=== PATIENT | male | born 1955 | race Asian ===

== ENCOUNTER 2018-04-13 04:02 | Emergency (ER) | payer BC, MEDICAID ==
[~2018-04-13] VITALS: Ht 170.2 cm; Wt 68.0 kg
[~2018-04-13 04:02] MED LIST: ACET325T42 PO; AMLO5TAB2 PO; ASPI-495 PO; ATOR40TA PO; DOCU-141 PO; INSU100V7 SQ; METO25TA6 PO
--- NOTE | 2018-04-13 04:40 | NUR ---
PT BIB SELF C/O RUNNING OUT OF ALL MEDS INCLUDING ORAL ANTIDIABETIC AGENTS AND INSULIN X "MONTHS", AND A "WOUND" TO THE R GREAT TOE WHICH APPEARS TO HAVE DARKENED, POSSIBLY NECROTIC, TISSUE. PT REPORTS METH AND CIGARETTE USE. RESP EVEN UNLABORED. SKIN WARM DRY. AMBULATORY STEADY GAIT. IN ER BED 11.
[2018-04-13 04:57] LABS: BASOPHILS % (AUTO) 0.5 % (0.0-2.0); EOSINOPHILS % (AUTO) 5.9 % (0.0-6.0); HEMATOCRIT 39 % (39-51); LYMPHOCYTES # (AUTO) 1.9 /CMM (0.8-4.8); LYMPHOCYTES % (AUTO) 25.1 % (20.0-44.0); MEAN CORPUSCULAR HEMOGLOBIN 31 PG (26.0-33.0); MEAN CORPUSCULAR HGB CONC 34 g/dl (31.0-36.0); MEAN CORPUSCULAR VOLUME 91 fL (80-96); MONOCYTES # (AUTO) 0.8 /CMM (0.1-1.30); MONOCYTES % (AUTO) 10.4 % (2.0-12.0); NEUTROPHILS # (AUTO) 4.4 /CMM (1.8-8.9); NEUTROPHILS % (AUTO) 58.1 % (43.0-81.0); PLATELET COUNT (AUTO) 210 /CMM (150-450); RDW COEFFICIENT OF VARIATION 13.9 (11.5-15.0); RED BLOOD CELL COUNT(AUTO) 4.25 MIL/uL (4.5-6.0); WHITE BLOOD COUNT (AUTO) 7.6 K/uL (4.3-11.0)
[2018-04-13] MEDS ORDERED: INSULIN REGULAR, HUMAN 100 UNIT/ML 10 ML VIAL ONE (04:57)
[2018-04-13] MEDS ORDERED: OLANZAPINE 5 MG TABLET ONE (05:10)
[2018-04-13] MEDS ORDERED: diphenhydrAMINE HCL 50 MG/ML VIAL ONE (05:10)
[2018-04-13] MEDS: diphenhydrAMINE HCL 50 MG/ML VIAL IV ONE (05:20)
[2018-04-13] MEDS: INSULIN REGULAR, HUMAN 100 UNIT/ML 10 ML VIAL IV ONE (05:20)
[2018-04-13] MEDS: IV NS 0.9% 1,000 ML BAG IV ONE (05:20)
[2018-04-13] MEDS: OLANZAPINE 5 MG TABLET PO ONE (05:21)
[2018-04-13 05:27] LABS: ALBUMIN 2.9 g/dL (3.4-5.0); BILIRUBIN,DIRECT 0.1 mg/dL (0.0-0.2); BILIRUBIN,TOTAL 0.2 mg/dL (0.2-1.0); CALCIUM, SERUM 8.6 mg/dL (8.5-10.1); CREATININE 1.1 mg/dL (0.6-1.3); TOTAL PROTEIN, SERUM 6.3 g/dL (6.4-8.2)
--- NOTE | 2018-04-13 05:28 | NUR ---
FEET SOAKING IN WARM SOAPY WATER PER MD ORDER
--- NOTE | 2018-04-13 05:32 | NUR ---
AFTER SOAKING FOR A FEW MINUTES, THE "WOUND" HAS DISAPPEARED AND NO DARK ANKUR REMAINS. MD NOTIFIED.
[2018-04-13] MEDS ORDERED: DEXTROSE 50%-WATER 50 ML DISP.SYRIN ONE (06:31)
--- NOTE | 2018-04-13 06:38 | NUR ---
bgl recheck=40. dr luis notified immediately. iv d50 pulled from [employer] [place] in preparation of administration. repeat accucheck showed 66. md updated, and received order to feed pt instead of iv d50 at this time and continue to monitor. VSS. NAD noted. resp even unlabored. skin warm dry. ambulatory steady gait, ambulated to restroom. give 8oz orange juice, peanut butter sandwich, and pudding. encouraged to eat promptly.
[2018-04-13] MEDS: DEXTROSE 50%-WATER 50 ML DISP.SYRIN IVP ONE (07:06)
[2018-04-13 08:01] VITALS: BP 139/80
--- NOTE | 2018-04-13 08:02 | NUR ---
Patient discharged to home in stable condition. Written and verbal after care instructions given. Patient verbalizes understanding of instruction.IV removed. Catheter intact and site benign. Pressure and 4x4 applied to site. No bleeding noted.
== END 2018-04-13 08:04 | disposition home or self-care (01) ==
LOC: ER 04:09
DX: F15.10 Other stimulant abuse, uncomplicated (principal); F17.200 Nicotine dependence, unspecified, uncomplicated; L29.8 Other pruritus; E10.65 Type 1 diabetes mellitus with hyperglycemia; Z59.0 Homelessness; R20.2 Paresthesia of skin; I10 Essential (primary) hypertension; Z90.89 Acquired absence of other organs; Z95.1 Presence of aortocoronary bypass graft; Z79.4 Long term (current) use of insulin; Z79.82 Long term (current) use of aspirin; Z79.899 Other long term (current) drug therapy
CPT/HCPCS: 36415; 80048-TC; 80076-TC; 82962-TC; 83690-TC; 85025-TC; A4606; J1200; J1815; J7030; Z7610

== ENCOUNTER 2019-10-09 02:25 | Emergency (ER) | payer BC ==
[~2019-10-09] VITALS: Ht 170.2 cm; Wt 65.8 kg
[~2019-10-09 02:25] MED LIST changes: -AMLO5TAB2 PO; +AMLO5TAB9 PO
[2019-10-09 02:53] VITALS: BP 144/86
[2019-10-09] MEDS ORDERED: IBUPROFEN 400 MG TABLET ONE (03:05)
--- NOTE | 2019-10-09 03:11 | NUR ---
PATIENT REFUSED TO SIGN DISCHARGE PAPERS.
[2019-10-09] MEDS ORDERED: IBUPROFEN 400 MG TABLET PO ONE (03:30)
== END 2019-10-09 03:12 | disposition home or self-care (01) ==
LOC: ER 02:26
DX: L84 Corns and callosities (principal); I10 Essential (primary) hypertension; E11.9 Type 2 diabetes mellitus without complications; Z90.89 Acquired absence of other organs; Z98.890 Other specified postprocedural states; Z79.4 Long term (current) use of insulin; Z79.899 Other long term (current) drug therapy; Z79.82 Long term (current) use of aspirin; Z87.891 Personal history of nicotine dependence

== ENCOUNTER 2020-11-12 14:22 | Emergency (ER) | payer MEDICARE, BC ==
[~2020-11-12] VITALS: Ht 167.6 cm; Wt 59.0 kg
[~2020-11-12 14:22] MED LIST changes: +AMLO-212 PO; -AMLO5TAB9 PO
--- NOTE | 2020-11-12 14:36 | NUR ---
[employer] at bedside speaking to patient for investigation.
--- NOTE | 2020-11-12 14:38 | NUR ---
PER [employer] PT REFUSING TO FILE COMPLAINT
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
[2020-11-12] MEDS ORDERED: IV NS 0.9% 1,000 ML IV ONE ×2 (16:00→19:00)
[2020-11-12 16:22] LABS: BASOPHILS % (AUTO) 0.3 % (0.0-2.0); EOSINOPHILS % (AUTO) 0.6 % (0.0-6.0); HEMATOCRIT 50 % (39-51); HEMOGLOBIN 16.7 g/dL (13.5-17.5); LYMPHOCYTES # (AUTO) 0.9 /CMM (0.8-4.8); LYMPHOCYTES % (AUTO) 8.7 % (20.0-44.0); MEAN CORPUSCULAR HGB CONC 33 g/dl (31.0-36.0); MEAN CORPUSCULAR VOLUME 94 fL (80-96); MONOCYTES # (AUTO) 0.6 /CMM (0.1-1.30); MONOCYTES % (AUTO) 5.8 % (2.0-12.0); NEUTROPHILS # (AUTO) 9.2 /CMM (1.8-8.9); NEUTROPHILS % (AUTO) 84.6 % (43.0-81.0); PLATELET COUNT (AUTO) 252 /CMM (150-450); RED BLOOD CELL COUNT(AUTO) 5.37 MIL/uL (4.5-6.0); WHITE BLOOD COUNT (AUTO) 10.9 K/uL (4.3-11.0)
[2020-11-12 16:24] LABS: ABG BASE EXCESS -10.3 mmol/L; ABG OXYGEN SATURATION 65.1 % (92.0-98.5); ABG PCO2 23.3 mmHg (35.0-45.0); ABG PH 7.383 (7.350-7.450); ABG PO2 34.5 mmHg (75.0-100.0); COHb 0.3 % (0.5-1.5); MetHb 1.1 % (0.0-1.5); O2Hb 64.2 % (94.0-97.0); SITE, ABG LEFT ARM; VENT MODE, BG RA
--- NOTE | 2020-11-12 16:59 | NUR ---
CALLED [facility] [place] [place] PER [facility] NO AVAILABLE BEDS AND SATURATED AT THIS TIME.
[2020-11-12 17:01] LABS: MAGNESIUM 2.2 mg/dL (1.8-2.4)
[2020-11-12 17:07] LABS: CALCIUM, SERUM 9.3 mg/dL (8.5-10.1); CREATININE 0.9 mg/dL (0.6-1.3); POTASSIUM 4.7 mmol/L (3.5-5.1)
--- NOTE | 2020-11-12 17:07 | NUR ---
CALLED [facility] [phone] SHAHIDA IN ER HAVING MD ALIDA HERNANDEZ WITH DR. NGUYEN.
[2020-11-12] MEDS ORDERED: INSULIN ASPART/LISPRO 100 UNIT/ML CARTRIDGE SQ STA (17:27)
--- NOTE | 2020-11-12 17:46 | NUR ---
CALLED [facility] [phone] FAXING INFO TO:
--- NOTE | 2020-11-12 18:09 | NUR ---
CALLED [facility] [phone] ER NO ENT SENIOR COPYWRITER.
--- NOTE | 2020-11-12 18:23 | NUR ---
CALLED [facility] [phone] WITH [address]. GREEN
[2020-11-12] MEDS ORDERED: INSULIN REGULAR, HUMAN 100 UNIT/ML 10 ML VIAL ONE (18:36)
--- NOTE | 2020-11-12 18:42 | NUR ---
spoke to Delia Johnson from [facility] transfer center and faxed all clinicals to review. Awaiting for call back.
[2020-11-12] MEDS ORDERED: INSULIN REGULAR, HUMAN 100 UNIT/ML 10 ML VIAL SQ ONE (19:00)
--- NOTE | 2020-11-12 19:04 | NUR ---
CALLED [facility] DIRECT[facility] [phone] CHARGE [facility] TRAUMA DOCTOR IS JD FAXING FACE SHEET AND CLINICALS TO [phone]
--- NOTE | 2020-11-12 19:05 | NUR ---
REC'D REPORT FROM [facility]
--- NOTE | 2020-11-12 19:14 | NUR ---
report given to Kayley ROQUE for cj
--- NOTE | 2020-11-12 19:14 | NUR ---
[facility] CALLING DR. NGUYEN SPEAKING WITH THEM.
--- NOTE | 2020-11-12 19:18 | NUR ---
DR. MILES FROM [facility] SPEAKING WITH DR. NGUYEN.
--- NOTE | 2020-11-12 19:45 | NUR ---
PT HYPERTENSIVE, DR. NGUYEN AWARE
--- NOTE | 2020-11-12 19:50 | NUR ---
verbal order from md espinoza. 2mg of mophine and 4mg of zofran. noted and carried out
[2020-11-12] MEDS ORDERED: ONDANSETRON HCL/PF 4 MG/2 ML VIAL ONE ×2 (19:51→20:41)
[2020-11-12] MEDS ORDERED: MORPHINE SULFATE INJ 2 MG/ML DISP.SYRIN ONE ×2 (19:52→20:41)
--- NOTE | 2020-11-12 19:57 | NUR ---
SPOKE WITH JULIO FROM [facility] TRANSFER. PER [facility] ER ATTENDING, DR. BETTY GREEN, ER FULLY SATURATED AND UNABLE TO ACCEPT TRANSFER. DR. NGUYEN MADE AWARE
[2020-11-12] MEDS ORDERED: MORPHINE SULFATE INJ 2 MG/ML DISP.SYRIN IV ONE (20:00)
[2020-11-12] MEDS ORDERED: ONDANSETRON HCL/PF - ER 4 MG/2 ML VIAL IV ONE (20:00)
--- NOTE | 2020-11-12 20:05 | NUR ---
SPOKE WITH BONIFACIO FROM [facility] REQUESTING TO OPEN CASE AGAIN, REFERRED TO INFORMED ER CHARGE NURSE.
--- NOTE | 2020-11-12 20:19 | NUR ---
DR. NGUYEN ON THE PHONE WITH DR. MILES, PT ACCEPTED TO [facility] AT THIS [facility]. PENDING TRANSFER INFORMATION Addendum: 11/12/20 at 2056 by [facility]ANT[facility] PT WILL BE TRANSFERRED TO [facility] ACCEPTING MD: DR. MILES NUMBER FOR REPORT: [phone]
--- NOTE | 2020-11-12 20:53 | NUR ---
CALLED [facility] FOR TRANSPORTA[facility] ETA [phone] TRIP #[id number]
--- NOTE | 2020-11-12 21:15 | NUR ---
GAVE REPORT TO JUED GRESHAM AT [facility]
[2020-11-12 22:48] VITALS: BP 162/82
--- NOTE | 2020-11-12 22:48 | NUR ---
gave report to ems and transfer documents
== END 2020-11-12 22:48 | disposition short-term general hospital (02) ==
LOC: ER 14:26
DX: S02.32XA Fracture of orbital floor, left side, initial encounter for closed fracture (principal); S02.31XA Fracture of orbital floor, right side, initial encounter for closed fracture; S02.2XXA Fracture of nasal bones, initial encounter for closed fracture; S02.601A Fracture of unspecified part of body of right mandible, initial encounter for closed fracture; S02.611A Fracture of condylar process of right mandible, initial encounter for closed fracture; S02.19XA Other fracture of base of skull, initial encounter for closed fracture; Y04.2XXA Assault by strike against or bumped into by another person, initial encounter; W18.30XA Fall on same level, unspecified, initial encounter; Y93.89 Activity, other specified; Y92.89 Other specified places as the place of occurrence of the external cause; Y99.8 Other external cause status; Z95.1 Presence of aortocoronary bypass graft; H54.62 Unqualified visual loss, left eye, normal vision right eye; I25.10 Atherosclerotic heart disease of native coronary artery without angina pectoris; I10 Essential (primary) hypertension; E78.5 Hyperlipidemia, unspecified; E11.65 Type 2 diabetes mellitus with hyperglycemia; Z79.4 Long term (current) use of insulin; Z79.82 Long term (current) use of aspirin; Z79.899 Other long term (current) drug therapy; E86.0 Dehydration; Z20.822 Contact with and (suspected) exposure to COVID-19
CPT/HCPCS: 36415; 36600; 70450; 70486; 71100; 72125; 80048; 82010 ×2; 82803; 82962 ×2; 83735; 85025; 87426; 96361; 96372; 96374; 96375; 99291; J1815; J2270 ×2; J2405 ×3; J7030 ×3; C9803